=== PATIENT | female | born 1950 | race African-American/Black ===

== ENCOUNTER 2023-12-11 12:39 | Inpatient (IN) | payer MEDICARE, MEDICAID ==
[~2023-12-11] VITALS: Ht 162.6 cm; Wt 48.5 kg
[2023-12-11] MEDS: SODIUM CHLORIDE 0.9% 1,000 ML IV ONE (14:02)
[2023-12-11 14:38] LABS: HEMATOCRIT. 27.1 % (36.0-48.0); HEMOGLOBIN. 8.7 g/dL (12.0-16.0); MEAN CORPUSCULAR HEMOGLOBIN 25.3 pg (28.0-32.0); MEAN CORPUSCULAR HGB CONC 32.1 g/dL (31.0-37.0); MEAN CORPUSCULAR VOLUME 78.9 fL (81.0-99.0); MEAN PLATELET VOLUME 8.5 fl (7.4-10.4); PLATELET 131 x1000/uL (130-400); RED BLOOD CELL COUNT 3.43 mill/uL (4.2-5.4); RED CELL DISTRIBUTION WIDTH 16.5 % (11.6-14.6); WHITE BLOOD COUNT 29.2 x1000/uL (4.5-11.0)
[2023-12-11 14:40] LABS: DIFFERENTIAL COMMENT 1
[2023-12-11 14:46] LABS: CHLORIDE 112 mEq/L (98-107); POTASSIUM 5.5 mEq/L (3.5-5.1); SODIUM 138 mEq/L (136-145)
[2023-12-11 14:47] LABS: CALCIUM 7.5 mg/dL (8.7-10.4); CARBON DIOXIDE 12 mEq/L (21-32)
[2023-12-11 14:52] LABS: CREATININE 4.9 mg/dL (0.6-1.0); GLUCOSE 114 mg/dL (70-105)
[2023-12-11 14:53] LABS: AMMONIA < 17 uMol/L (<32)
[2023-12-11 14:54] LABS: ALANINE AMINOTRANSFERASE 60 IU/L (10-49); ALBUMIN 3.2 g/dL (3.2-4.8); ASPARTATE AMINOTRANSFERASE 170 IU/L (<34); BILIRUBIN DIRECT 0.1 mg/dL (<=3.0); BILIRUBIN TOTAL 0.2 mg/dL (0.1-1.0); CREATINE KINASE > 1300 IU/L (34-145); PROTEIN TOTAL 6.6 g/dL (6.0-8.3)
[2023-12-11 15:04] LABS: UREA NITROGEN BLOOD 107 mg/dL (9-23)
[2023-12-11 15:05] LABS: TROPONIN I HIGH SENSITIVITY 2636 ng/L (3.0-34)
[2023-12-11 15:34] VITALS: PULSE 89; RESP 18; O2SAT 98
[2023-12-11] MEDS: ALBUTEROL (0.083%) 2.5MG/3ML NEB HHN SCH (15:34)
[2023-12-11] MEDS: CALCIUM GLUCONATE 1GM PREMIX 50 ML IV NR (15:35)
[2023-12-11] MEDS: INSULIN REGULAR (HUMULIN R) 1000UNITS/10ML VIAL IV NR (15:57)
[2023-12-11] MEDS: DEXTROSE 50% WATER 50ML SYRINGE IV NR (15:57)
[2023-12-11] MEDS: SODIUM CHLORIDE 0.9% 1000ML BAG (SEPSIS BOLUS) IV ONE (16:03)
[2023-12-11] MEDS: CEFTRIAXONE 1GM/50ML 50 ML IV NR (16:06)
[2023-12-11] MEDS: VANCOMYCIN 1G PREMIX 200 ML IV NR (16:46)
[2023-12-11 17:44] LABS: ANISOCYTOSIS 1+; MICROCYTOSIS 1+; PLATELET ESTIMATE NORMAL
[2023-12-11] MEDS ORDERED: NOREPINEPHRINE 8MG/250ML PMX 250 ML IV PRN (20:34)
[2023-12-11] MEDS: ENOXAPARIN 60MG/0.6ML SYR SUBCUT NR (20:36)
[2023-12-11] MEDS: PIPERACILLIN/TAZO 3.375G/50ML 50 ML IV SCH (21:50)
[2023-12-11] MEDS: SODIUM CHLORIDE 0.9% 1,000 ML IV SCH (21:51)
[2023-12-12] VITALS (7 sets, daily range): BP systolic 94–157; BP diastolic 55–139; PULSE 64–97; RESP 10–20; TEMP 36.1956–36.72516; O2SAT 97–99
[2023-12-12 06:09] LABS: POTASSIUM 5.8 mEq/L (3.5-5.1)
[2023-12-12 06:11] LABS: CALCIUM 7.9 mg/dL (8.7-10.4)
[2023-12-12 06:15] LABS: CREATININE 4.7 mg/dL (0.6-1.0)
[2023-12-12 06:16] LABS: CREATINE KINASE MB FRACTION 28.5 ng/mL (0.5-3.6)
[2023-12-12 06:17] LABS: HEMATOCRIT. 30.2 % (36.0-48.0); HEMOGLOBIN. 9.6 g/dL (12.0-16.0); MEAN CORPUSCULAR HEMOGLOBIN 25.2 pg (28.0-32.0); MEAN CORPUSCULAR HGB CONC 31.8 g/dL (31.0-37.0); MEAN CORPUSCULAR VOLUME 79.1 fL (81.0-99.0); MEAN PLATELET VOLUME 9.1 fl (7.4-10.4); PLATELET 123 x1000/uL (130-400); RED BLOOD CELL COUNT 3.81 mill/uL (4.2-5.4); RED CELL DISTRIBUTION WIDTH 16.7 % (11.6-14.6); WHITE BLOOD COUNT 23.2 x1000/uL (4.5-11.0)
[2023-12-12 06:29] LABS: DIFFERENTIAL COMMENT 1
[2023-12-12 08:09] LABS: INR 1.1; PROTHROMBIN TIME 11.9 sec (9.6-11.0)
[2023-12-12] MEDS: ENOXAPARIN 60MG/0.6ML SYR SUBCUT SCH (09:00)
[2023-12-12 09:42] LABS: ANISOCYTOSIS 1+; MICROCYTOSIS 1+; PLATELET ESTIMATE SLIGHTLY DECREASED
[2023-12-12] MEDS ORDERED: SODIUM POLYSTYRENE SULFONATE 15 G/60 ML BOT PO ONE (17:00)
[2023-12-12 17:31] LABS: CREATINE KINASE MB FRACTION 28.3 ng/mL (0.5-3.6)
[2023-12-12] MEDS: SODIUM ZIRCONIUM CYCLOSILICATE 10GM/PACKET PO NR (20:26)
[2023-12-12] MEDS: SODIUM CHLORIDE 0.45% 1,000 ML IV SCH (20:26)
[2023-12-12] MEDS: SODIUM BICARBONATE 8.4% 50MEQ/50ML SYR IV NR (20:27)
[2023-12-12] MEDS: TRAMADOL 50MG TABLET PO PRN (20:28)
[2023-12-13] VITALS (12 sets, daily range): BP systolic 97–144; BP diastolic 70–120; PULSE 85–101; RESP 15–25; TEMP 36.33624–37.11408; O2SAT 92–100
[2023-12-13 01:57] LABS: CLARITY URINE TURBID (CLEAR); COLOR URINE YELLOW (YELLOW); GLUCOSE URINE NEGATIVE (NEGATIVE); KETONES URINE NEGATIVE (NEGATIVE); LEUKOCYTE ESTERASE URINE 3+ (NEGATIVE); NITRITE URINE NEGATIVE (NEGATIVE); OCCULT BLOOD URINE 3+ (NEGATIVE); PROTEIN URINE 2+ (NEGATIVE); SPECIFIC GRAVITY URINE 1.011 (1.005-1.030); UROBILINOGEN URINE 0.2 E.U./dL (0.2-1.0)
[2023-12-13 02:06] LABS: *AMPHETAMINES SCREEN URINE NEGATIVE (NEGATIVE); *BARBITURATES SCREEN URINE NEGATIVE (NEGATIVE); *BENZODIAZEPINES SCREEN URINE NEGATIVE (NEGATIVE); *COCAINE SCREEN URINE NEGATIVE (NEGATIVE); CANNABINOID URINE SCREEN NEGATIVE (NEGATIVE); ECSTASY MDMA SCREEN URINE NEGATIVE (NEGATIVE); METHADONE URINE SCREEN NEGATIVE (NEGATIVE); OPIATES URINE SCREEN PRESUMPTIVE POSITIVE (NEGATIVE); PHENCYCLIDINE URINE SCREEN NEGATIVE (NEGATIVE)
[2023-12-13 02:18] LABS: BACTERIA URINE 2+; WBC URINE TNTC /hpf (0-2)
[2023-12-13] MEDS: ONDANSETRON HCL 4MG/2ML INJ IV PRN (02:22)
[2023-12-13 05:37] LABS: CREATINE KINASE MB FRACTION 23.9 ng/mL (0.5-3.6)
[2023-12-13 05:38] LABS: IRON 32 ug/dL (50-170)
[2023-12-13 05:39] LABS: TRIGLYCERIDE 249 mg/dL (0-150)
[2023-12-13 05:40] LABS: CHOLESTEROL 146 mg/dL (<200); HDL CHOLESTEROL < 20 mg/dL (>65); LDL CHOLESTEROL 73 mg/dL (5-100)
[2023-12-13 05:41] LABS: TOTAL IRON BINDING CAPACITY 267 ug/dl (250-425)
[2023-12-13 05:46] LABS: FERRITIN 201 ng/mL (10-291)
[2023-12-13 05:47] LABS: VITAMIN B12 SERUM 1475 pg/mL (211-911)
[2023-12-13 05:48] LABS: FOLIC ACID (FOLATE) SERUM 9.88 ng/mL (>5.38)
[2023-12-13 05:50] LABS: CREATINE KINASE 3859 IU/L (34-145)
[2023-12-13 06:12] LABS: TROPONIN I HIGH SENSITIVITY 1818 ng/L (3.0-34)
[2023-12-13] MEDS: ASPIRIN 81MG TABLET PO SCH (09:16)
[2023-12-13] MEDS: VANCOMYCIN 500MG PREMIX 100 ML IV SCH (14:56)
[2023-12-13] MEDS: SODIUM BICARBONATE 100 MEQ in DEXTROSE 5% WATER 900 ML IV SCH (17:21)
[2023-12-14] VITALS (11 sets, daily range): BP systolic 125–148; BP diastolic 61–112; PULSE 59–94; RESP 13–25; TEMP 36.44736–36.55848; O2SAT 98–100
[2023-12-14] MEDS ORDERED: NALOXONE HCL 0.4MG/ML VIAL IV PRN (06:15)
[2023-12-14] MEDS: HYDROCODONE/ACETAMINOPHEN 10/325MG TABLET PO PRN (06:42)
[2023-12-14 16:43] LABS: BASOPHILS % 0.4 % (0.0-2.0); EOSINOPHILS % 0.1 % (0.0-5.0); HEMATOCRIT. 30.3 % (36.0-48.0); HEMOGLOBIN. 9.8 g/dL (12.0-16.0); LYMPHOCYTES % 7.5 % (20.0-50.0); MEAN CORPUSCULAR HEMOGLOBIN 25.7 pg (28.0-32.0); MEAN CORPUSCULAR HGB CONC 32.2 g/dL (31.0-37.0); MEAN PLATELET VOLUME 10.3 fl (7.4-10.4); MONOCYTES % 11.5 % (2.0-8.0); NEUTROPHILS % 80.5 % (40.0-76.0); PLATELET 97 x1000/uL (130-400); RED BLOOD CELL COUNT 3.79 mill/uL (4.2-5.4); RED CELL DISTRIBUTION WIDTH 16.9 % (11.6-14.6); WHITE BLOOD COUNT 10.7 x1000/uL (4.5-11.0)
[2023-12-14 16:52] LABS: CHLORIDE 109 mEq/L (98-107); SODIUM 142 mEq/L (136-145)
[2023-12-14 16:53] LABS: CALCIUM 7.8 mg/dL (8.7-10.4); CARBON DIOXIDE 25 mEq/L (21-32); POTASSIUM 3.1 mEq/L (3.5-5.1)
[2023-12-14 16:58] LABS: CREATININE 0.7 mg/dL (0.6-1.0); GLUCOSE 118 mg/dL (70-105); UREA NITROGEN BLOOD 23 mg/dL (9-23)
[2023-12-14 17:01] LABS: PHOSPHORUS 2.1 mg/dL (2.5-4.9)
[2023-12-14 17:10] LABS: CREATINE KINASE 2430 IU/L (34-145)
[2023-12-14] MEDS: POTASSIUM CHLORIDE 20MEQ/PACKET PO NR (18:13)
[2023-12-14] MEDS: MAGNESIUM 2 G PREMIX 50 ML IV NR (19:44)
[2023-12-15] VITALS (8 sets, daily range): BP systolic 120–170; BP diastolic 75–157; PULSE 67–99; RESP 14–25; TEMP 36.50292–37.00296; O2SAT 96–100
[2023-12-15] MEDS: SODIUM CHLORIDE 0.45% 1,000 ML IV SCH (06:28)
[2023-12-15 10:15] LABS: BASOPHILS % 0.1 % (0.0-2.0); DIFFERENTIAL COMMENT 0; EOSINOPHILS % 0.1 % (0.0-5.0); HEMATOCRIT. 28.9 % (36.0-48.0); HEMOGLOBIN. 9.4 g/dL (12.0-16.0); LYMPHOCYTES % 10.8 % (20.0-50.0); MEAN CORPUSCULAR HEMOGLOBIN 25.3 pg (28.0-32.0); MEAN CORPUSCULAR HGB CONC 32.5 g/dL (31.0-37.0); MEAN CORPUSCULAR VOLUME 77.8 fL (81.0-99.0); MEAN PLATELET VOLUME 9.7 fl (7.4-10.4); MONOCYTES % 14.1 % (2.0-8.0); NEUTROPHILS % 74.9 % (40.0-76.0); PLATELET 103 x1000/uL (130-400); RED BLOOD CELL COUNT 3.71 mill/uL (4.2-5.4); RED CELL DISTRIBUTION WIDTH 16.1 % (11.6-14.6); WHITE BLOOD COUNT 8.5 x1000/uL (4.5-11.0)
[2023-12-15 10:26] LABS: INR 1.1; PROTHROMBIN TIME 12.5 sec (9.6-11.0)
[2023-12-15 10:31] LABS: ALANINE AMINOTRANSFERASE 72 IU/L (10-49); ALBUMIN 2.9 g/dL (3.2-4.8); BILIRUBIN DIRECT 0.2 mg/dL (<=3.0)
[2023-12-15 10:32] LABS: ASPARTATE AMINOTRANSFERASE 104 IU/L (<34); BILIRUBIN TOTAL 0.6 mg/dL (0.1-1.0); CALCIUM 7.7 mg/dL (8.7-10.4); CARBON DIOXIDE 31 mEq/L (21-32); CHLORIDE 104 mEq/L (98-107); PHOSPHORUS 1.7 mg/dL (2.5-4.9); PREALBUMIN 7.7 mg/dl (10.0-40.0); PROTEIN TOTAL 6.4 g/dL (6.0-8.3); SODIUM 141 mEq/L (136-145)
[2023-12-15 10:36] LABS: CREATININE 0.6 mg/dL (0.6-1.0)
[2023-12-15 10:39] LABS: GLUCOSE 121 mg/dL (70-105); UREA NITROGEN BLOOD 13 mg/dL (9-23)
[2023-12-15 10:48] LABS: CREATINE KINASE 2075 IU/L (34-145)
[2023-12-15] MEDS: POTASSIUM CHLORIDE 20MEQ/PACKET PO NR (12:39)
[2023-12-15] MEDS: MAGNESIUM 4 G PREMIX 100 ML IV NR (12:40)
[2023-12-15] MEDS: POTASSIUM PHOSPHATE 15 MMOL in DEXT 5% WATER 245 ML IV NR (12:51)
[2023-12-16] VITALS (7 sets, daily range): BP systolic 111–169; BP diastolic 54–95; PULSE 74–95; RESP 16–20; TEMP 35.89176–37.39188; O2SAT 96–100
[2023-12-16] MEDS ORDERED: ENOXAPARIN 60MG/0.6ML SYR SUBCUT SCH (09:00)
[2023-12-16] MEDS: PIPERACILLIN/TAZO 3.375G/50ML 50 ML IV SCH (09:46)
[2023-12-16] MEDS: IPRATROPIUM/ALBUTEROL 0.5-3(2.5)MG/3ML NEB HHN PRN (12:06)
[2023-12-16 12:30] LABS: HEMOGLOBIN. 9.9 g/dL (12.0-16.0); MEAN CORPUSCULAR HEMOGLOBIN 25.2 pg (28.0-32.0); MEAN CORPUSCULAR VOLUME 78.6 fL (81.0-99.0); MEAN PLATELET VOLUME 9.1 fl (7.4-10.4); PLATELET 129 x1000/uL (130-400); RED BLOOD CELL COUNT 3.94 mill/uL (4.2-5.4); RED CELL DISTRIBUTION WIDTH 16.1 % (11.6-14.6); WHITE BLOOD COUNT 6.5 x1000/uL (4.5-11.0)
[2023-12-16 12:34] LABS: DIFFERENTIAL COMMENT 1
[2023-12-16 12:47] LABS: CHLORIDE 103 mEq/L (98-107); POTASSIUM 3.2 mEq/L (3.5-5.1); SODIUM 142 mEq/L (136-145)
[2023-12-16 12:48] LABS: CALCIUM 7.5 mg/dL (8.7-10.4); CARBON DIOXIDE 33 mEq/L (21-32)
[2023-12-16 12:53] LABS: CREATININE 0.5 mg/dL (0.6-1.0); GLUCOSE 103 mg/dL (70-105); UREA NITROGEN BLOOD 7 mg/dL (9-23)
[2023-12-16 12:55] LABS: PHOSPHORUS 1.7 mg/dL (2.5-4.9)
[2023-12-16 13:05] LABS: CREATINE KINASE 1416 IU/L (34-145)
[2023-12-16] MEDS ORDERED: MAGNESIUM 2 G PREMIX 50 ML IV ONE (14:30)
[2023-12-16] MEDS: PIPERACILLIN/TAZO 3.375G/50ML IV SCH (15:00)
[2023-12-16] MEDS: MAGNESIUM 2 G PREMIX 50 ML IV NR (15:24)
[2023-12-16] MEDS: POTASSIUM PHOSPHATE 15 MMOL in DEXT 5% WATER 245 ML IV NR (18:06)
[2023-12-16 18:07] LABS: MICROCYTOSIS 1+; PLATELET ESTIMATE NORMAL
[2023-12-16] MEDS: ZOLPIDEM TARTRATE 5MG TABLET PO PRN (21:35)
[2023-12-17] VITALS: BP 169/95; PULSE 96; RESP 19; TEMP 36.28068; O2SAT 96
[2023-12-17 04:00] VITALS: BP 153/92; PULSE 99; RESP 19; TEMP 36.16956; O2SAT 100
[2023-12-17 08:00] VITALS: BP 166/85; PULSE 84; RESP 16; TEMP 37.39188; O2SAT 100
[2023-12-17 12:21] VITALS: BP 111/56; PULSE 66; RESP 20; TEMP 36.44736; O2SAT 98
[2023-12-17 16:19] VITALS: BP 121/50; PULSE 78; RESP 18; TEMP 37.16964; O2SAT 100
[2023-12-17 16:53] LABS: HEMATOCRIT. 32.8 % (36.0-48.0); HEMOGLOBIN. 10.3 g/dL (12.0-16.0); MEAN CORPUSCULAR HEMOGLOBIN 24.9 pg (28.0-32.0); MEAN CORPUSCULAR HGB CONC 31.4 g/dL (31.0-37.0); MEAN CORPUSCULAR VOLUME 79.3 fL (81.0-99.0); MEAN PLATELET VOLUME 9.4 fl (7.4-10.4); PLATELET 173 x1000/uL (130-400); RED BLOOD CELL COUNT 4.13 mill/uL (4.2-5.4); RED CELL DISTRIBUTION WIDTH 15.8 % (11.6-14.6); WHITE BLOOD COUNT 7.7 x1000/uL (4.5-11.0)
[2023-12-17 16:58] LABS: DIFFERENTIAL COMMENT 1
[2023-12-17 17:04] LABS: CHLORIDE 102 mEq/L (98-107); POTASSIUM 2.9 mEq/L (3.5-5.1); SODIUM 140 mEq/L (136-145)
[2023-12-17 17:05] LABS: CALCIUM 7.3 mg/dL (8.7-10.4); CARBON DIOXIDE 33 mEq/L (21-32)
[2023-12-17 17:10] LABS: CREATININE 0.5 mg/dL (0.6-1.0); GLUCOSE 111 mg/dL (70-105)
[2023-12-17 17:11] LABS: UREA NITROGEN BLOOD 6 mg/dL (9-23)
[2023-12-17 17:12] LABS: CREATINE KINASE 1058 IU/L (34-145)
[2023-12-17 17:13] LABS: PHOSPHORUS 2.2 mg/dL (2.5-4.9)
[2023-12-17 17:23] LABS: HYPOCHROMASIA 1+; MICROCYTOSIS 1+; PLATELET ESTIMATE NORMAL
[2023-12-17 20:00] VITALS: BP 103/66; PULSE 100; RESP 18; TEMP 36.72516; O2SAT 99
[2023-12-17] MEDS: MAGNESIUM 4 G PREMIX 100 ML IV NR (20:37)
[2023-12-17] MEDS: POTASSIUM CHLORIDE 20MEQ TABLET SR PO SCH (22:45)
[2023-12-18] VITALS (7 sets, daily range): BP systolic 101–139; BP diastolic 52–68; PULSE 70–78; RESP 17–22; TEMP 36.28068–37.11408; O2SAT 95–100
[2023-12-18 09:16] LABS: BASOPHILS % 0.3 % (0.0-2.0); DIFFERENTIAL COMMENT 0; EOSINOPHILS % 0.1 % (0.0-5.0); HEMATOCRIT. 28.6 % (36.0-48.0); HEMOGLOBIN. 9.3 g/dL (12.0-16.0); LYMPHOCYTES % 13.4 % (20.0-50.0); MEAN CORPUSCULAR HEMOGLOBIN 25.5 pg (28.0-32.0); MEAN CORPUSCULAR HGB CONC 32.6 g/dL (31.0-37.0); MEAN CORPUSCULAR VOLUME 78.3 fL (81.0-99.0); MEAN PLATELET VOLUME 9.1 fl (7.4-10.4); MONOCYTES % 14.8 % (2.0-8.0); NEUTROPHILS % 71.4 % (40.0-76.0); PLATELET 208 x1000/uL (130-400); RED BLOOD CELL COUNT 3.66 mill/uL (4.2-5.4); RED CELL DISTRIBUTION WIDTH 15.2 % (11.6-14.6); WHITE BLOOD COUNT 7.6 x1000/uL (4.5-11.0)
[2023-12-18 09:25] LABS: CALCIUM 7.6 mg/dL (8.7-10.4); CARBON DIOXIDE 31 mEq/L (21-32); CHLORIDE 107 mEq/L (98-107); POTASSIUM 3.7 mEq/L (3.5-5.1); SODIUM 141 mEq/L (136-145)
[2023-12-18 09:31] LABS: CREATININE 0.5 mg/dL (0.6-1.0); GLUCOSE 152 mg/dL (70-105)
[2023-12-18 09:32] LABS: UREA NITROGEN BLOOD 7 mg/dL (9-23)
[2023-12-18 09:34] LABS: PHOSPHORUS 1.7 mg/dL (2.5-4.9)
[2023-12-18] MEDS: MAGNESIUM 2 G PREMIX 50 ML IV SCH (12:48)
[2023-12-18] MEDS: POTASSIUM PHOSPHATE 15 MMOL in DEXT 5% WATER 245 ML IV NR (15:26)
[2023-12-19] VITALS: BP 132/58; PULSE 75; RESP 18; TEMP 36.61404; O2SAT 96
[2023-12-19 04:00] VITALS: BP 137/77; PULSE 88; RESP 20; TEMP 36.50292; O2SAT 96
[2023-12-19 07:05] LABS: CHLORIDE 108 mEq/L (98-107); POTASSIUM 3.9 mEq/L (3.5-5.1); SODIUM 141 mEq/L (136-145)
[2023-12-19 07:06] LABS: CALCIUM 7.6 mg/dL (8.7-10.4); CARBON DIOXIDE 29 mEq/L (21-32)
[2023-12-19 07:11] LABS: CREATININE 0.4 mg/dL (0.6-1.0); GLUCOSE 82 mg/dL (70-105)
[2023-12-19 07:12] LABS: ALANINE AMINOTRANSFERASE 53 IU/L (10-49); PROTEIN TOTAL 6.2 g/dL (6.0-8.3)
[2023-12-19 07:13] LABS: ALBUMIN 2.9 g/dL (3.2-4.8); ASPARTATE AMINOTRANSFERASE 43 IU/L (<34); BILIRUBIN DIRECT 0.1 mg/dL (<=3.0); CREATINE KINASE 515 IU/L (34-145); PHOSPHORUS 2.3 mg/dL (2.5-4.9)
[2023-12-19 07:14] LABS: BILIRUBIN TOTAL 0.4 mg/dL (0.1-1.0)
[2023-12-19 07:31] LABS: INR 1.1; PROTHROMBIN TIME 11.8 sec (9.6-11.0)
[2023-12-19 07:50] LABS: HEMATOCRIT. 27.2 % (36.0-48.0); HEMOGLOBIN. 8.6 g/dL (12.0-16.0); MEAN CORPUSCULAR HEMOGLOBIN 24.9 pg (28.0-32.0); MEAN CORPUSCULAR HGB CONC 31.6 g/dL (31.0-37.0); MEAN CORPUSCULAR VOLUME 78.9 fL (81.0-99.0); MEAN PLATELET VOLUME 9.9 fl (7.4-10.4); PLATELET 237 x1000/uL (130-400); RED BLOOD CELL COUNT 3.45 mill/uL (4.2-5.4); RED CELL DISTRIBUTION WIDTH 15.3 % (11.6-14.6); WHITE BLOOD COUNT 8.6 x1000/uL (4.5-11.0)
[2023-12-19 08:00] VITALS: BP 138/59; PULSE 87; RESP 18; TEMP 36.114; O2SAT 98
[2023-12-19 08:22] LABS: UREA NITROGEN BLOOD < 5 mg/dL (9-23)
[2023-12-19 08:23] LABS: DIFFERENTIAL COMMENT 1
[2023-12-19] MEDS: ACETAMINOPHEN 325MG TABLET PO PRN (08:28)
[2023-12-19] MEDS ORDERED: MAGNESIUM 2 G PREMIX 50 ML IV ONE (09:45)
[2023-12-19] MEDS ORDERED: SODIUM PHOSPHATE 15 MMOL in DEXT 5% WATER 245 ML IV ONE (09:45)
[2023-12-19] MEDS: MAGNESIUM 2 G PREMIX 50 ML IV NR (11:18)
[2023-12-19 12:00] VITALS: BP 139/59; PULSE 73; RESP 20; TEMP 36.50292; O2SAT 100
[2023-12-19] MEDS: POTASSIUM PHOSPHATE 30 MMOL in DEXT 5% WATER 490 ML IV ONE (13:38)
[2023-12-19 16:00] VITALS: BP 137/57; PULSE 83; RESP 20; TEMP 36.61404; O2SAT 100
[2023-12-19 18:04] LABS: HYPOCHROMASIA 1+; MICROCYTOSIS 1+; PLATELET ESTIMATE NORMAL
[2023-12-19 20:00] VITALS: BP 134/71; PULSE 89; RESP 18; TEMP 36.6696; O2SAT 97
[2023-12-20] VITALS: RESP 21; TEMP 37.05852
[2023-12-20 04:00] VITALS: BP 144/86; PULSE 87; RESP 20; TEMP 36.28068; O2SAT 97
[2023-12-20 08:00] VITALS: BP 143/68; PULSE 92; RESP 18; TEMP 36.28068; O2SAT 100
[2023-12-20 11:54] VITALS: BP 138/72; PULSE 89; RESP 20; TEMP 36.3918; O2SAT 100
[2023-12-20 16:00] VITALS: BP 136/65; PULSE 75; RESP 18; TEMP 36.114; TEMP 36.11400; O2SAT 100
[2023-12-20 19:13] VITALS: BP 122/70; PULSE 78; TEMP 97.6; O2SAT 98
== END 2023-12-20 19:54 | disposition hospice, home (50) | DRG 871 ==
LOC: ER 12:39 → EDBEDREQ 15:27 → EDBEDREQTM 15:27 → EDBEDREQSVC 15:27 → 5EST 12-12 12:29 → 7WST 12-15 23:59
PROVIDERS: ADMIT Internal Medicine; ATTEND Internal Medicine
PROC: 06HY33Z Insertion of Infusion Device into Lower Vein, Percutaneous Approach (ICD-10-PCS; principal; 2023-12-12)
PROC: B54CZZA Ultrasonography of Left Lower Extremity Veins, Guidance (ICD-10-PCS; 2023-12-12)
DX: A41.9 Sepsis, unspecified organism (principal); G92.8 Other toxic encephalopathy; L89.893 Pressure ulcer of other site, stage 3; I21.A1 Myocardial infarction type 2; N17.9 Acute kidney failure, unspecified; E87.20 Acidosis, unspecified; E46 Unspecified protein-calorie malnutrition; N13.6 Pyonephrosis; Z68.1 Body mass index [BMI] 19.9 or less, adult; M62.82 Rhabdomyolysis; N30.90 Cystitis, unspecified without hematuria; E87.5 Hyperkalemia; J44.9 Chronic obstructive pulmonary disease, unspecified; D64.9 Anemia, unspecified; Z96.643 Presence of artificial hip joint, bilateral; I12.9 Hypertensive chronic kidney disease with stage 1 through stage 4 chronic kidney disease, or unspecified chronic kidney disease; F17.200 Nicotine dependence, unspecified, uncomplicated; R73.9 Hyperglycemia, unspecified; N18.9 Chronic kidney disease, unspecified; R65.20 Severe sepsis without septic shock; Z99.81 Dependence on supplemental oxygen; L89.150 Pressure ulcer of sacral region, unstageable; S80.01XA Contusion of right knee, initial encounter; L89.322 Pressure ulcer of left buttock, stage 2; L89.312 Pressure ulcer of right buttock, stage 2
CPT/HCPCS: 36415; 71045; 74176; 76770; 78580; 80048; 80061; 80076; 80202; 80305; 81003; 82140; 82270; 82550; 82553; 82607; 82728; 82746; 82962; 83036; 83540; 83550; 83605; 83735; 83880; 84100; 84134; 84145; 84484; 85025; 85379; 87426; 92610; 93005; 93306; 93970; 93971; 94640; 99291; J0610; J0696; J1650; J1815; J2405; J2543; J3370; J3475; J3490; J7030; J7060; J7070